=== PATIENT | female | born 1965 ===

== ENCOUNTER 2018-08-16 09:13 | Emergency (ER) | payer OTHER ==
[~2018-08-16] VITALS: Ht 162.6 cm; Wt 113.6 kg
[~2018-08-16 09:13] MED LIST: FLEXERIL 1010 MG/TAB PO; NORCO 325 MG-51 TAB PO
[2018-08-16 09:23] VITALS: PULSE 68; TEMP 97.5
[2018-08-16 10:11] VITALS: BP 158/79
[2018-08-16] MEDS ORDERED: NORCO 325 MG-7.1 TAB PO (10:15)
== END 2018-08-16 10:42 | disposition home or self-care (01) ==
LOC: COL.ER 09:13
DX: S89.91XA Unspecified injury of right lower leg, initial encounter (principal); Z98.890 Other specified postprocedural states; Z98.51 Tubal ligation status; W10.9XXA Fall (on) (from) unspecified stairs and steps, initial encounter
CPT/HCPCS: L1846